=== PATIENT | male | born 1935 | race Caucasian/White ===

== ENCOUNTER 2018-06-11 07:44 | Emergency (ER) | payer OTHER ==
[~2018-06-11 07:44] MED LIST: ASPI-879 PO; LEVO25TA57 PO; MULT-27 PO; NIFE-31 PO; SIMV10TA98 PO
--- NOTE | 2018-06-11 07:58 | ER Report ---
History and Physical Time Seen By MD: 07:58 HPI/ROS CHIEF COMPLAINT: abdominal pain, no BM for several days, no urination since yesterday. HISTORY OF PRESENT ILLNESS: This is an 82 year old male. He has a history of prostate cancer and followed by a urologist at the [facility] in [place]. Has had a few days of lower abdominal pain. Worsened over the last twelve hours. Has not urinated since 0800 yesterday and very uncomfortable. No bowel movement for a couple of days as well. He uses milk of magnesia occasionally and has tried this with no effect. No chest pain or shortness of breath. No fevers or chills. Has some mild low back pain, but no other musculoskeletal pain. Allergies: Coded Allergies: No Known Drug Allergies (Unverified , 06/11/18) Home Meds Reported Medications [Eligrin] No Conflict Check, 1 SQ DIRECTED 06/11/18 Tamsulosin Hcl (TAMSULOSIN HCL) 0.4 Mg Cap.er.24h, 0.4 MG PO QDAY, CAP 06/11/18 Aspirin/Calcium Carbonate/Mag (ASPIRIN BUFFERED 325 MG TAB) 325 Mg Tablet, 325 MG PO 11/11/13 Mu-Vits-Min Th/Lycopene/Lutein (CENTRUM SILVER TABLET) 1 Each Tablet, 1 EACH PO 11/11/13 Nifedipine (NIFEDIPINE XL) 30 Mg Tab.er.24, 30 MG PO QDAY 11/11/13 Simvastatin (SIMVASTATIN) 10 Mg Tablet, 10 MG PO HS, TAB 11/05/13 Levothyroxine Sodium (SYNTHROID) 25 Mcg Tablet, 25 MCG PO QDAY 11/05/13 Reviewed Nurses Notes: Yes Hx Smoking: No Smoking Status: Former Smoker Hx Substance Use Disorder: No Hx Alcohol Use: Yes (occ) Constitutional Vital Sign - Last 24 Hours 06/11/18 06/11/18 06/11/18 06/11/18 07:44 07:51 07:56 08:00 Temp 97.4 Pulse 65 64 Resp 12 B/P (MAP) 125/70 (88) 125/70 131/71 (91) Pulse Ox 93 92 O2 Delivery Room Air 06/11/18 06/11/18 06/11/18 06/11/18 08:14 08:30 08:35 09:00 Pulse 65 66 B/P (MAP) 135/71 (92) 140/66 (90) Pulse Ox 90 91 06/11/18 06/11/18 06/11/18 06/11/18 09:05 09:30 09:35 10:00 Pulse 77 55 B/P (MAP) 130/79 (96) 139/79 (99) Pulse Ox 92 91 06/11/18 06/11/18 06/11/18 10:05 10:30 10:35 Pulse 57 70 B/P (MAP) 147/81 (103) Pulse Ox 88 90 Physical Exam General Appearance: The patient is alert. Some acute distress due to pain. Eyes: Pupils are equal, round. No pallor, injection or icterus. ENT: Mucous membranes are moist. Respiratory: Breathing easily and unlabored. Lungs are clear to auscultation. Cardiovascular: Regular rate and rhythm. No murmurs, gallops or rubs. Normal capillary refill. Gastrointestinal: Abdomen is soft, tender throughout, but worse in lower abdomen. Nondistended. Guarding lower abdomen, no rebound. Normal active bowel sounds. No CVA tenderness. Neurological: Alert and oriented x3. Skin: Warm and dry. DIFFERENTIAL DIAGNOSIS: After history and physical exam, differential diagnosis was considered for abdominal pain that seems worse in the lower abdomen, likely due to urinary retention. We'll plan on bladder scan, fully catheter, labs and possible imaging Medical Decision Making Data Points Result Diagram: 06/11/18 0808 06/11/18 0808 Laboratory Hematology Test 06/11/18 00:00 06/11/18 08:08 Urine Color Yellow Urine Clarity Slightly-cloudy Urine pH 7.0 pH (4.8-9.5) Urine Specific [place] 1.017 Urine Protein 30 mg/dL (NEGATIVE) Urine Glucose (UA) Negative mg/dL (NEGATIVE) Urine Ketones Negative mg/dL (NEGATIVE) Urine Blood Moderate (NEGATIVE) Urine Nitrite Negative (NEGATIVE) Urine Bilirubin Negative (NEGATIVE) Urine Urobilinogen Negative mg/dL (0.2-1.9) Urine Leukocyte Esterase Negative (NEGATIVE) Urine RBC 132 /HPF (0-2/HPF) Urine WBC 7 /HPF (0-5/HPF) Urine Squamous Epithelial Cells None /LPF (NONE-FEW) Urine Bacteria Few /HPF (NONE-FEW) Urine Hyaline Casts Few /LPF (NONE-FEW) Urine Mucus Few /HPF (NONE-FEW) Red Blood Count 4.51 M/uL (4.00-5.60) Mean Corpuscular Volume 87.7 fL (80.0-96.0) Mean Corpuscular Hemoglobin 29.7 pg (26.0-33.0) Mean Corpuscular Hemoglobin Concent 33.9 g/dL (32.0-36.0) Red Cell Distribution Width 13.8 % (11.5-14.5) Mean Platelet Volume 11.3 fL (7.2-11.1) Neutrophils (%) (Auto) 87.8 % (39.4-72.5) Lymphocytes (%) (Auto) 5.4 % (17.6-49.6) Monocytes (%) (Auto) 6.3 % (4.1-12.4) Eosinophils (%) (Auto) 0.0 % (0.4-6.7) Basophils (%) (Auto) 0.5 % (0.3-1.4) Nucleated RBC Relative Count (auto) 0.0 /100WBC Neutrophils # (Auto) 9.2 K/uL (2.0-7.4) Lymphocytes # (Auto) 0.6 K/uL (1.3-3.6) Monocytes # (Auto) 0.7 K/uL (0.3-1.0) Eosinophils # (Auto) 0.0 K/uL (0.0-0.5) Basophils # (Auto) 0.1 K/uL (0.0-0.1) Nucleated RBC Absolute Count (auto) 0.01 K/uL Sodium Level 141 mmol/L (137-145) Potassium Level 4.2 mmol/L (3.5-5.0) Chloride Level 107 mmol/L (98-107) Carbon Dioxide Level 27 mmol/L (22-30) Blood Urea Nitrogen 26 mg/dl (9-21) Creatinine 1.40 mg/dl (0.66-1.25) Glomerular Filtration Rate Calc 48.8 Random Glucose 152 mg/dl (75-110) Calcium Level 9.3 mg/dl (8.4-10.2) Total Bilirubin 0.7 mg/dl (0.2-1.3) Aspartate Amino Transf (AST/SGOT) 26 U/L (0-35) Alanine Aminotransferase (ALT/SGPT) 24 U/L (0-56) Alkaline Phosphatase 98 U/L (0-126) Total Protein 7.2 g/dl (6.3-8.2) Albumin 4.4 g/dl (3.5-5.0) Chemistry Test 06/11/18 00:00 06/11/18 08:08 Urine Color Yellow Urine Clarity Slightly-cloudy Urine pH 7.0 pH (4.8-9.5) Urine Specific [place] 1.017 Urine Protein 30 mg/dL (NEGATIVE) Urine Glucose (UA) Negative mg/dL (NEGATIVE) Urine Ketones Negative mg/dL (NEGATIVE) Urine Blood Moderate (NEGATIVE) Urine Nitrite Negative (NEGATIVE) Urine Bilirubin Negative (NEGATIVE) Urine Urobilinogen Negative mg/dL (0.2-1.9) Urine Leukocyte Esterase Negative (NEGATIVE) Urine RBC 132 /HPF (0-2/HPF) Urine WBC 7 /HPF (0-5/HPF) Urine Squamous Epithelial Cells None /LPF (NONE-FEW) Urine Bacteria Few /HPF (NONE-FEW) Urine Hyaline Casts Few /LPF (NONE-FEW) Urine Mucus Few /HPF (NONE-FEW) White Blood Count 10.5 k/uL (4.5-11.0) Red Blood Count 4.51 M/uL (4.00-5.60) Hemoglobin 13.4 g/dL (14.0-18.0) Hematocrit 39.6 % (42.0-52.0) Mean Corpuscular Volume 87.7 fL (80.0-96.0) Mean Corpuscular Hemoglobin 29.7 pg (26.0-33.0) Mean Corpuscular Hemoglobin Concent 33.9 g/dL (32.0-36.0) Red Cell Distribution Width 13.8 % (11.5-14.5) Platelet Count 196 K/uL (150-450) Mean Platelet Volume 11.3 fL (7.2-11.1) Neutrophils (%) (Auto) 87.8 % (39.4-72.5) Lymphocytes (%) (Auto) 5.4 % (17.6-49.6) Monocytes (%) (Auto) 6.3 % (4.1-12.4) Eosinophils (%) (Auto) 0.0 % (0.4-6.7) Basophils (%) (Auto) 0.5 % (0.3-1.4) Nucleated RBC Relative Count (auto) 0.0 /100WBC Neutrophils # (Auto) 9.2 K/uL (2.0-7.4) Lymphocytes # (Auto) 0.6 K/uL (1.3-3.6) Monocytes # (Auto) 0.7 K/uL (0.3-1.0) Eosinophils # (Auto) 0.0 K/uL (0.0-0.5) Basophils # (Auto) 0.1 K/uL (0.0-0.1) Nucleated RBC Absolute Count (auto) 0.01 K/uL Glomerular Filtration Rate Calc 48.8 Calcium Level 9.3 mg/dl (8.4-10.2) Total Bilirubin 0.7 mg/dl (0.2-1.3) Aspartate Amino Transf (AST/SGOT) 26 U/L (0-35) Alanine Aminotransferase (ALT/SGPT) 24 U/L (0-56) Alkaline Phosphatase 98 U/L (0-126) Total Protein 7.2 g/dl (6.3-8.2) Albumin 4.4 g/dl (3.5-5.0) Urinalysis Test 06/11/18 00:00 Urine Color Yellow Urine Clarity Slightly-cloudy Urine pH 7.0 pH (4.8-9.5) Urine Specific [place] 1.017 Urine Protein 30 mg/dL (NEGATIVE) Urine Glucose (UA) Negative mg/dL (NEGATIVE) Urine Ketones Negative mg/dL (NEGATIVE) Urine Blood Moderate (NEGATIVE) Urine Nitrite Negative (NEGATIVE) Urine Bilirubin Negative (NEGATIVE) Urine Urobilinogen Negative mg/dL (0.2-1.9) Urine Leukocyte Esterase Negative (NEGATIVE) Urine RBC 132 /HPF (0-2/HPF) Urine WBC 7 /HPF (0-5/HPF) Urine Squamous Epithelial Cells None /LPF (NONE-FEW) Urine Bacteria Few /HPF (NONE-FEW) Urine Hyaline Casts Few /LPF (NONE-FEW) Urine Mucus Few /HPF (NONE-FEW) ED Course/Re-evaluation ED Course Significant improvement after placement of the Coude tip catheter. 850cc of yellow urine. Later had blood tinged urine. CT scan as noted above, increased size and look of the prostate, with his history of cancer this is concerning. Also some lymphadenopathy, some areas improved from prior scans, some areas new. Recommended need to follow-up with his doctor at the [facility]. We will leave the catheter in place for the next 24-48 hours. He can see his doctor or return here if having any problems. Decision to Disposition Date: Jun 11, 2018 Decision to Disposition Time: 10:40 Depart Departure Latest Vital Signs Vital Signs Date Time Temp Pulse Resp B/P (MAP) Pulse Ox O2 Delivery O2 Flow Rate FiO2 06/11/18 10:35 70 90 06/11/18 10:30 147/81 (103) 06/11/18 07:56 97.4 12 Room Air Impression: Primary Impression: Urinary retention Additional Impression: Prostate cancer Condition: Improved Disposition: HOME OR SELF-CARE Patient Instructions: Urinary Retention in Men (ED) Additional Instructions: Please call your doctor in [place] today to let them know you were here in the ER. Because of urinary retention due to prostate problems, we had to place a urinary catheter. This will be left in place for about 48 hours after which time, you can have it removed and see how you do. If your regular doctor would like this left in place longer, he/she will let you know that and can follow-up later this week or as directed by them. Return to the ER sooner or as needed for any further problems with urination or the catheter. Problem Qualifiers MACK CARLOS MD Jun 11, 2018 07:58
[2018-06-11 08:17] LABS: PLATELET COUNT, AUTOMATED 196 K/uL (150-450)
[2018-06-11] MEDS ORDERED: [UNRECOGNIZED DRUG - OTHER] SQ (08:33)
[2018-06-11] MEDS ORDERED: TAMS0.4C70 PO (08:33)
[2018-06-11] MEDS ORDERED: IOPAMIDOL 61% 100 ML INFUS BTL 100 ML ONE (08:45)
--- NOTE | 2018-06-11 09:41 | RADIOLOGY IMAGING REPORT ---
FACILITY: [facility] PATIENT NAME: Ajay Robison : 1935 MR: [id number] V: [id number] EXAM DATE: ORDERING PHYSICIAN: MACK CARLOS [place]CHN[place] [facility] [place]ay [place] : 1935 Visit/Account:[id number] Date of Sevice: 06/11/2018 CT ABDOMEN PELVIS W/ CON HISTORY: abd pain, urinary retention, no bm in days TECHNIQUE: Following administration of IV contrast contiguous axial images acquired through the abdom en/pelvis. Coronal and sagittal reformatting also performed.Dose Lowering Technique One of the following dose optimization techniques was utilized in the performance of this exam: Autom ated exposure control; adjustment of the mA and/or kV according to the patient's size; or use of an i terative reconstruction technique. Specific details can be referenced in the facility's radiology C T exam operational policy. CONTRAST: 90 mL Isovue-370 COMPARISON: December 31, 2013 FINDINGS: Visualized lung bases: There Is a 3 mm subpleural nodule posterior inferior aspect right middle lobe not definitively seen on the prior study and best appreciated on image 33 of series 3 Linear stranding in the lung bases is slightly increased when compared the prior study although likel y related to scarring versus atelectasis Hepatobiliary: . Multiple small hypoattenuating lesions in the liver that appear relatively stable when compared the prior study. The largest is in the left lobe measuring 1.1 cm in diameter Spleen: Negative. Adrenals: There is thickening of the left adrenal gland that appears similar to the prior study Pancreas: Negative. Kidneys ureters or bladder: There is a 7.3 cm cyst lower pole of the left kidney. The bladder is mos tly decompressed by Apple catheter. There is moderate bladder wall thickening appears more prominent when compared to the prior study. This may be related to underdistention with urine. Prostate glan d is moderately enlarged, heterogeneous and impinges upon the floor the bladder. There is hyperdense material seen along the dependent portion of the bladder which may represent tiny stones or blood pr oducts. Irregular thickening of the floor the bladder may be related to the prostate impingement alt lauryn bladder mass cannot be totally excluded Genitalia: As above GI: There is mild diffuse wall thickening of the anus and rectum. There is diverticulosis left-side d colon although no CT evidence of acute diverticulitis. The appendix is visualized and does not beth ear inflamed Vessels/spaces/nodes: There are extensive vascular calcifications throughout the abdominal aorta and branch vessels there is increasing mural thrombus in the infrarenal abdominal aorta the aorta measur es 2.3 x 2.2 cm in this location There is increased aortocaval adenopathy when compared to the prior study. . The largest measures 2 .9 x 2.2 cm and is best seen on image 43 of series 2 A left external iliac lymph node has decrease in size now measuring 1.1 x 0.8 cm as opposed to 2.1 x 1.4 cm previously. This is best seen on image 94 of series 2 . There has been additional decrease in some of the other previously present which peroneal lymph no tala Bones/soft tissues: There is a small umbilical hernia containing fat. There are spondylotic changes of the lumbar spine have increased slightly in the interim Additional findings: None pertinent. IMPRESSION: The bladder is mostly decompressed by Apple catheter. There is moderate bladder wall thickening that appears more prominent when compared to the prior study which may be related to underdistention with urine. The prostate gland is moderately enlarged, heterogeneous and impinges upon the floor the dejah dder. There is hyperdense material along the dependent portion the bladder which may represent tiny stones or blood products. Irregular thickening of the floor the bladder may be related to the prosta te impingement although bladder mass cannot be excluded on the basis o these images. There is mild diffuse wall thickening of the anus and rectum although no evidence of bowel obstructio n. This could represent an inflammatory process although clinical correlation needed.Extensive vascu lar calcifications throughout the abdomen and pelvis which has increased when compared the prior stud y as described above Some of the previous which peroneal adenopathy has decreased in size. There are however new aortocav al lymph nodes the largest measuring 2.9 x 2.2 cm which is concerning for malignancy. There is a 3 mm noncalcified nodule inferior aspect the right middle lobe not definitively seen on e prior study Report Dictated By: Zena Munoz MD at 06/11/2018 9:11 AM Report E-Signed By: Zena Munoz MD at 06/11/2018 9:36 AM WSN:[id number]
[2018-06-11 10:30] VITALS: BP 147/81
== END 2018-06-11 11:05 | disposition home or self-care (01) ==
LOC: ER 07:56
DX: R33.9 Retention of urine, unspecified (principal)
CPT/HCPCS: 74177; 81001; 85025; 87088; 99284; A4340; Q9967; 82040; 82247; 82310; 82374; 82435; 82565; 82947; 84075; 84132; 84155; 84295; 84450; 84460; 84520

== ENCOUNTER 2018-06-13 10:39 | Emergency (ER) | payer OTHER ==
[~2018-06-13 10:39] MED LIST changes: +TAMS0.4C70 PO; +[UNRECOGNIZED DRUG - OTHER] SQ
--- NOTE | 2018-06-13 10:54 | ER Report ---
History and Physical Time Seen By MD: 10:54 Hx. of Stated Complaint: NEEDS CATHETER REMOVED HPI/ROS CHIEF COMPLAINT: Urinary catheter removal HISTORY OF PRESENT ILLNESS: This is an 82-year-old male who presents to the emergency department to have his urinary catheter removed. Patient was seen and evaluated 2 days ago in the emergency department, he had urinary retention, a urinary catheter was placed. Patient has tolerated the catheter well, history of prostate cancer with radiation now on oral chemotherapy. He has a follow-up appointment scheduled with the [facility] next Sunday. He denies fevers or chills. No nausea or vomiting. He states that he still unable to produce stool however he feels that he is moving things along and has been producing flatus. REVIEW OF SYSTEMS: Respiratory: No cough, no dyspnea. Cardiovascular: No chest pain, no palpitations. Gastrointestinal: No vomiting, no abdominal pain. Genitourinary: As above. Musculoskeletal: No back pain. Allergies: Coded Allergies: No Known Drug Allergies (Unverified , 06/11/18) Home Meds Reported Medications [Eligrin] No Conflict Check, 1 SQ DIRECTED 06/11/18 Tamsulosin Hcl (TAMSULOSIN HCL) 0.4 Mg Cap.er.24h, 0.4 MG PO QDAY, CAP 06/11/18 Aspirin/Calcium Carbonate/Mag (ASPIRIN BUFFERED 325 MG TAB) 325 Mg Tablet, 325 MG PO 11/11/13 Mu-Vits-Min Th/Lycopene/Lutein (CENTRUM SILVER TABLET) 1 Each Tablet, 1 EACH PO 11/11/13 Nifedipine (NIFEDIPINE XL) 30 Mg Tab.er.24, 30 MG PO QDAY 11/11/13 Simvastatin (SIMVASTATIN) 10 Mg Tablet, 10 MG PO HS, TAB 11/05/13 Levothyroxine Sodium (SYNTHROID) 25 Mcg Tablet, 25 MCG PO QDAY 11/05/13 Past Medical/Surgical History The patient has a past medical and surgical history of hypertension, hypercholesterolemia, prostate cancer, radiation, tonsillectomy. Reviewed Nurses Notes: Yes Hx Smoking: No Smoking Status: Former Smoker Hx Substance Use Disorder: No Hx Alcohol Use: Yes (occ) Constitutional Vital Sign - Last 24 Hours 06/13/18 06/13/18 06/13/18 06/13/18 10:43 10:44 11:00 11:09 Temp 98.8 Pulse 80 76 Resp 16 B/P (MAP) 128/63 128/63 (84) 113/58 (76) Pulse Ox 92 93 O2 Delivery Room Air Physical Exam General Appearance: The patient is alert, has no immediate need for airway protection and no current signs of toxicity. Eyes: Pupils equal and round no injection. Respiratory: Chest is non tender, lungs are clear to auscultation. Cardiac: regular rate and rhythm. Gastrointestinal: Abdomen is soft and non tender, no masses, bowel sounds normal. Musculoskeletal: Neck: Neck is supple and non tender. Extremities have full range of motion and are non tender. Skin: No rashes or lesions. DIFFERENTIAL DIAGNOSIS: After history and physical exam differential diagnosis was considered for urinary retention, urinary tract infection, prostatitis. Medical Decision Making ED Course/Re-evaluation ED Course The patient was admitted to room. A history of physical were obtained. Differential diagnoses were considered. The patient's indwelling urinary catheter was removed without complications. Patient was instructed to keep his follow-up appointment with the [facility] next Sunday, patient will return if unable to urinate within the next 8-10 hours. The patient had no other questions or concerns at this time and was discharged home. Decision to Disposition Date: Jun 13, 2018 Decision to Disposition Time: 11:23 Depart Departure Latest Vital Signs Vital Signs Date Time Temp Pulse Resp B/P (MAP) Pulse Ox O2 Delivery O2 Flow Rate FiO2 06/13/18 11:09 76 93 06/13/18 11:00 113/58 (76) 06/13/18 10:43 98.8 16 Room Air Impression: Primary Impression: Encounter for removal of urinary catheter Condition: Improved Disposition: HOME OR SELF-CARE Patient Instructions: Urinary Retention in Men (ED) Additional Instructions: Please keep your appointment with the [facility] next Sunday. If you aren't able to urinate within the next 8-10 hours please return to the emergency department where we will ladder scan U and reevaluate a 2nd urinary ca theter. Drink plenty of water to keep the bladder irrigated. Get plenty of rest. Return to the ER for any other concerns or worsening symptoms. MARIAJOSE LEDBETTER CHEF CONCIERGE-BC Jun 13, 2018 10:54
[2018-06-13 11:00] VITALS: BP 113/58
== END 2018-06-13 11:32 | disposition home or self-care (01) ==
LOC: ER 10:55
DX: Z46.6 Encounter for fitting and adjustment of urinary device (principal); Z85.46 Personal history of malignant neoplasm of prostate
CPT/HCPCS: 99282

== ENCOUNTER 2018-06-14 10:08 | Emergency (ER) | payer OTHER ==
--- NOTE | 2018-06-14 10:26 | ER Report ---
History and Physical Time Seen By MD: 10:26 Hx. of Stated Complaint: pt unable to urinate HPI/ROS History of prostate cancer, treated with chemo and radiation. Has had increasing PSA as of late. Disgnosed with urinary retention and chavez placed last week. No new meds including OTC meds. Chavez d/c'd yesterday, and now with urinary retention again. No pain or fever/chills. No night sweats or weight loss. Appt. with urologist cancelled in April, and now with appt. for next Sunday. Remainder of the 14 system rev: Yes Allergies: Coded Allergies: No Known Drug Allergies (Unverified , 06/14/18) Home Meds Reported Medications [Eligrin] No Conflict Check, 1 SQ DIRECTED 06/11/18 Tamsulosin Hcl (TAMSULOSIN HCL) 0.4 Mg Cap.er.24h, 0.4 MG PO QDAY, CAP 06/11/18 Aspirin/Calcium Carbonate/Mag (ASPIRIN BUFFERED 325 MG TAB) 325 Mg Tablet, 325 MG PO 11/11/13 Mu-Vits-Min Th/Lycopene/Lutein (CENTRUM SILVER TABLET) 1 Each Tablet, 1 EACH PO 11/11/13 Nifedipine (NIFEDIPINE XL) 30 Mg Tab.er.24, 30 MG PO QDAY 11/11/13 Simvastatin (SIMVASTATIN) 10 Mg Tablet, 10 MG PO HS, TAB 11/05/13 Levothyroxine Sodium (SYNTHROID) 25 Mcg Tablet, 25 MCG PO QDAY 11/05/13 Reviewed Nurses Notes: Yes Old Medical Records Reviewed: Yes Hx Smoking: No Smoking Status: Former Smoker Hx Substance Use Disorder: No Hx Alcohol Use: Yes (occ) Constitutional Vital Sign - Last 24 Hours 06/14/18 06/14/18 06/14/18 06/14/18 10:08 10:16 10:20 10:30 Temp 96.7 Pulse 66 72 Resp 13 B/P (MAP) 142/68 (92) 142/68 119/61 (80) Pulse Ox 92 95 O2 Delivery Room Air 06/14/18 06/14/18 06/14/18 06/14/18 10:38 11:00 11:08 11:30 Pulse 64 67 B/P (MAP) 117/65 (82) 129/69 (89) Pulse Ox 90 91 06/14/18 06/14/18 11:38 11:44 Pulse 61 B/P (MAP) 140/73 (95) Pulse Ox 90 Physical Exam General Appearance: The patient is alert, has no immediate need for airway protection and no current signs of toxicity. Eyes: Pupils equal and round no injection. Respiratory: Chest is non tender, lungs are clear to auscultation. Cardiac: regular rate and rhythm Gastrointestinal: Abdomen is soft and non tender, no masses, bowel sounds normal. Medical Decision Making Data Points Laboratory Hematology Test 06/14/18 11:13 Urine Color Yellow Urine Clarity Slightly-cloudy Urine pH 6.0 pH (4.8-9.5) Urine Specific [place] 1.019 Urine Protein 100 mg/dL (NEGATIVE) Urine Glucose (UA) Negative mg/dL (NEGATIVE) Urine Ketones Negative mg/dL (NEGATIVE) Urine Blood Large (NEGATIVE) Urine Nitrite Negative (NEGATIVE) Urine Bilirubin Negative (NEGATIVE) Urine Urobilinogen Negative mg/dL (0.2-1.9) Urine Leukocyte Esterase Trace (NEGATIVE) Urine RBC 868 /HPF (0-2/HPF) Urine WBC 42 /HPF (0-5/HPF) Urine Squamous Epithelial Cells Few /LPF (NONE-FEW) Urine Bacteria Negative /HPF (NONE-FEW) Urine Mucus Few /HPF (NONE-FEW) Chemistry Test 06/14/18 11:13 Urine Color Yellow Urine Clarity Slightly-cloudy Urine pH 6.0 pH (4.8-9.5) Urine Specific [place] 1.019 Urine Protein 100 mg/dL (NEGATIVE) Urine Glucose (UA) Negative mg/dL (NEGATIVE) Urine Ketones Negative mg/dL (NEGATIVE) Urine Blood Large (NEGATIVE) Urine Nitrite Negative (NEGATIVE) Urine Bilirubin Negative (NEGATIVE) Urine Urobilinogen Negative mg/dL (0.2-1.9) Urine Leukocyte Esterase Trace (NEGATIVE) Urine RBC 868 /HPF (0-2/HPF) Urine WBC 42 /HPF (0-5/HPF) Urine Squamous Epithelial Cells Few /LPF (NONE-FEW) Urine Bacteria Negative /HPF (NONE-FEW) Urine Mucus Few /HPF (NONE-FEW) Urinalysis Test 06/14/18 11:13 Urine Color Yellow Urine Clarity Slightly-cloudy Urine pH 6.0 pH (4.8-9.5) Urine Specific [place] 1.019 Urine Protein 100 mg/dL (NEGATIVE) Urine Glucose (UA) Negative mg/dL (NEGATIVE) Urine Ketones Negative mg/dL (NEGATIVE) Urine Blood Large (NEGATIVE) Urine Nitrite Negative (NEGATIVE) Urine Bilirubin Negative (NEGATIVE) Urine Urobilinogen Negative mg/dL (0.2-1.9) Urine Leukocyte Esterase Trace (NEGATIVE) Urine RBC 868 /HPF (0-2/HPF) Urine WBC 42 /HPF (0-5/HPF) Urine Squamous Epithelial Cells Few /LPF (NONE-FEW) Urine Bacteria Negative /HPF (NONE-FEW) Urine Mucus Few /HPF (NONE-FEW) ED Course/Re-evaluation ED Course Long-standing history of prostate to include previous prostate cancer. PSA currently rising per the patient. Has urologist and appt. next week. UA no reliable given chavez sample. Will not treat with abx. Placed chavez again, and will d/c with leg bag. Decision to Disposition Date: Jun 14, 2018 Decision to Disposition Time: 11:42 Depart Departure Latest Vital Signs Vital Signs Date Time Temp Pulse Resp B/P (MAP) Pulse Ox O2 Delivery O2 Flow Rate FiO2 06/14/18 11:44 140/73 (95) 06/14/18 11:38 61 90 06/14/18 10:20 96.7 13 Room Air Impression: Primary Impression: Urinary retention Condition: Improved Disposition: HOME OR SELF-CARE Patient Instructions: Chavez Catheter Placement and Care (ED) Additional Instructions: FOLLOW UP WITH YOUR UROLOGIST SCHEDULED ON SUNDAY. IF THERE ARE ANY PROBLEMS WITH YOUR CHAVEZ CATHETER, RETURN TO THE ED. ZAIRE MOMIN MD Jun 14, 2018 10:26
[2018-06-14 11:44] VITALS: BP 140/73
== END 2018-06-14 12:02 | disposition home or self-care (01) ==
LOC: ER 10:39
DX: R33.9 Retention of urine, unspecified (principal); Z85.46 Personal history of malignant neoplasm of prostate
CPT/HCPCS: 81001; 99282